=== PATIENT | female | born 1940 | race Caucasian/White ===

== ENCOUNTER → 2016-12-14 | Outpatient (CLI) | payer BC ==
[2016-12-14 12:46] LABS: ALT/SGPT 38 U/L (12-78); AST/SGOT 24 U/L (15-37); BLOOD UREA NITROGEN 18 mg/dl (7-18); BUN/CREATININE RATIO 24.1 (10-20); CALCIUM 9.3 mg/dl (8.5-10.1); CARBON DIOXIDE 28 mmol/L (21-32); CHLORIDE 109 mmol/L (98-107); CHOLESTEROL 224 mg/dl (0-200); CREATININE 0.76 mg/dl (0.60-1.20); GLUCOSE 116 mg/dl (70-99); POTASSIUM 4.3 mmol/L (3.5-5.1); SODIUM 143 mmol/L (136-145); TRIGLYCERIDES 289 mg/dl (0-150); VERY LOW DENSITY LIPOPROT CALC 58 mg/dl
[2016-12-14 12:52] LABS: ALB/GLOB RATIO 1.4 (0.9-2); ALKALINE PHOSPHATASE 71 U/L (45-117); CHOLESTEROL/HDL RATIO 3.6; HDL CHOLESTEROL 62 mg/dl; LDL CHOLESTEROL CALCULATED 104 mg/dl
[2016-12-14 13:22] LABS: ESTIMATED AVERAGE GLUCOSE 120 mg/dl; HA1C FLAG Normal (Normal)
== END | disposition home or self-care (01) ==
LOC: C.LABPVFM 09:14
PROVIDERS: ATTEND Family Medicine
DX: E78.5 Hyperlipidemia, unspecified (principal); R73.01 Impaired fasting glucose; B00.1 Herpesviral vesicular dermatitis; R32 Unspecified urinary incontinence

== ENCOUNTER → 2017-01-20 | Outpatient (CLI) | payer BC | END | disposition home or self-care (01) | LOC: C.MAMM 11:05 | PROVIDERS: ATTEND Family Medicine | DX: M85.851 Other specified disorders of bone density and structure, right thigh (principal); M85.852 Other specified disorders of bone density and structure, left thigh ==

== ENCOUNTER → 2017-03-16 | Outpatient (CLI) | payer BC ==
--- NOTE | 2017-03-16 15:19 | MAMMOGRAPHY REPORT ---
BILATERAL DIGITAL SCREENING MAMMOGRAM WITH CAD: 03/16/2017 CLINICAL HISTORY: Routine screening. TECHNIQUE: Current study was also evaluated with a Computer Aided Detection (CAD) system. Bilateral CC and MLO views were obtained. COMPARISON: Comparison is made to exams dated: 02/25/2016 mammogram, 02/21/2015 mammogram - [facility], 04/28/2011 mammogram, 05/22/2009 mammogram, and 11/12/2002 mammogram - [facility]. BREAST COMPOSITION: There are scattered areas of fibroglandular density in both breasts. FINDINGS: No suspicious masses, calcifications, or areas of architectural distortion are noted in ei ther breast. There has been no significant interval change compared to prior exams. IMPRESSION: ACR BI-RADS CATEGORY 1: NEGATIVE There is no mammographic evidence of malignancy. A 1 year screening mammogram is recommended. The pa tient will receive written notification of the results. Approximately 10% of breast cancers are not detected with mammography. A negative mammographic report should not delay biopsy if a clinically suggestive mass is present. Tamie Quevedo M.D. ah/:03/16/2017 14:42:14 Booth Cashier: Hyacinth Rebolledo RT(R)(M), [facility] letter sent: Normal 1/2 BI-RADS Code: ACR BI-RADS Category 1: Negative
== END | disposition home or self-care (01) ==
LOC: C.MAMM 13:03
PROVIDERS: ATTEND Family Medicine
DX: Z12.31 Encounter for screening mammogram for malignant neoplasm of breast (principal)

== ENCOUNTER → 2017-04-05 | Outpatient (CLI) | payer BC ==
--- NOTE | 2017-04-05 16:18 | DIAGNOSTIC IMAGING REPORT ---
LEFT SHOULDER MIN 2 VIEWS ROUTINE HISTORY: 76 years-old Female ARTHRAGLGIA OF MULTIPLE SITES acute left-sided shoulder pain without reported trauma. COMPARISON: None available TECHNIQUE: 3 views of the left shoulder FINDINGS: Moderate acromioclavicular and glenohumeral osteoarthritis is noted without acute fracture or dislocation. There is atherosclerosis of the aorta. The imaged lung mckeon appear clear. IMPRESSION: 1. No acute fracture or dislocation. 2. Moderate acromioclavicular and glenohumeral osteoarthritis The above report was generated using voice recognition software. It may contain grammatical, syntax or spelling errors. Electronically signed by: Indra Gipson M.D. 04/05/2017 4:17 PM Dictated Date/Time: 04/05/2017 4:16 PM
--- NOTE | 2017-04-05 16:21 | DIAGNOSTIC IMAGING REPORT ---
LEFT HAND MIN 3 VIEWS ROUTINE CLINICAL HISTORY: ARTHRALGIA OF MULTIPLE SITES pain COMPARISON: None. DISCUSSION: Severe degenerative change all major osseous structures. Considerable degenerative change first carpometacarpal joint. Mild periarticular osteopenia. Moderate reactive osteophytic changes throughout. Mild nonspecific soft tissue edema. IMPRESSION: Severe degenerative change. The above report was generated using voice recognition software. It may contain grammatical, syntax or spelling errors. Electronically signed by: Boom Hoffman M.D. 04/05/2017 4:20 PM Dictated Date/Time: 04/05/2017 4:19 PM
--- NOTE | 2017-04-05 16:23 | DIAGNOSTIC IMAGING REPORT ---
RIGHT HAND MIN 3 VIEWS ROUTINE CLINICAL HISTORY: ARTHRALGIA OF MULTIPLE SITES Right pain COMPARISON: None. DISCUSSION: Significant degenerative change throughout all major osseous structures. This includes the osseous structures as well as wrists. This is most prominent involving the distal interphalangeal joints. There is mild periarticular osteopenia. No major marginal erosions are identified. There is no evidence for soft tissue swelling. IMPRESSION: Considerable degenerative change. The above report was generated using voice recognition software. It may contain grammatical, syntax or spelling errors. Electronically signed by: Boom Hoffman M.D. 04/05/2017 4:22 PM Dictated Date/Time: 04/05/2017 4:20 PM
== END | disposition home or self-care (01) ==
LOC: C.RAD1850 15:57
PROVIDERS: ATTEND Internal Medicine Rheumatology
DX: M19.041 Primary osteoarthritis, right hand (principal); M19.042 Primary osteoarthritis, left hand; M19.012 Primary osteoarthritis, left shoulder; R76.8 Other specified abnormal immunological findings in serum

== ENCOUNTER → 2017-04-06 | Outpatient (CLI) | payer BC ==
[2017-04-06 13:18] LABS: URINE APPEARANCE CLEAR (CLEAR); URINE BILIRUBIN NEG (NEG); URINE COLOR DK YELLOW; URINE NITRITE NEG (NEG); URINE PH 7.5 (4.5-7.5); URINE SPECIFIC GRAVITY 1.026 (1.000-1.030); UROBILINOGEN NEG (NEG)
[2017-04-06 13:23] LABS: MANUAL MICROSCOPIC REQUIRED? NO; REVIEW REQ? NO
[2017-04-06 13:50] LABS: AST/SGOT 20 U/L (15-37); BLOOD UREA NITROGEN 15 mg/dl (7-18); BUN/CREATININE RATIO 16.7 (10-20); CALCIUM 9.7 mg/dl (8.5-10.1); CARBON DIOXIDE 29 mmol/L (21-32); CHLORIDE 105 mmol/L (98-107); CHOLESTEROL 183 mg/dl (0-200); CREATININE 0.88 mg/dl (0.60-1.20); GLUCOSE 103 mg/dl (70-99); SODIUM 139 mmol/L (136-145)
[2017-04-06 13:55] LABS: ALB/GLOB RATIO 0.9 (0.9-2); ALKALINE PHOSPHATASE 93 U/L (45-117); ALT/SGPT 40 U/L (12-78); CHOLESTEROL/HDL RATIO 4.2; HDL CHOLESTEROL 44 mg/dl; LDL CHOLESTEROL CALCULATED 92 mg/dl; TRIGLYCERIDES 234 mg/dl (0-150); VERY LOW DENSITY LIPOPROT CALC 47 mg/dl
[2017-04-10 23:12] LABS: ANTI-CENTROMERE AB <1.0 NEG AI (<1.0 NEG); ANTI-SS-A <1.0 NEG AI (<1.0 NEG); ANTI-SS-B <1.0 NEG AI (<1.0 NEG); DNA ds CRITHIDIA NEGATIVE (NEGATIVE); Sm Antibody <1.0 NEG AI (<1.0 NEG)
== END | disposition home or self-care (01) ==
LOC: C.LABPVFM 08:13
PROVIDERS: ATTEND Internal Medicine Rheumatology
DX: M25.512 Pain in left shoulder (principal); R76.8 Other specified abnormal immunological findings in serum; J45.909 Unspecified asthma, uncomplicated; E78.5 Hyperlipidemia, unspecified; R73.01 Impaired fasting glucose; D17.9 Benign lipomatous neoplasm, unspecified; R32 Unspecified urinary incontinence

== ENCOUNTER → 2018-03-20 | Outpatient (CLI) | payer BC ==
--- NOTE | 2018-03-22 13:39 | MAMMOGRAPHY REPORT ---
BILATERAL DIGITAL SCREENING MAMMOGRAM TOMOSYNTHESIS WITH CAD: 03/20/2018 CLINICAL HISTORY: Routine screening. TECHNIQUE: The study was acquired using full field digital technology and interpreted from soft copy. Breast tomosynthesis in addition to standard 2D mammography was performed. Current study was also ev aluated with a Computer Aided Detection (CAD) system. COMPARISON: Comparison is made to exams dated: 03/16/2017 mammogram, 02/25/2016 mammogram, 02/21/2015 [facility] - [facility], 04/28/2011 mammogram, 05/22/2009 mammogram, and 11/12/2002 [facility]. BREAST COMPOSITION: There are scattered areas of fibroglandular density in both breasts. FINDINGS: The parenchymal pattern is unchanged. No developing mass, architectural distortion or cluster of susp icious microcalcifications is seen in either breast. IMPRESSION: ACR BI-RADS CATEGORY 2: BENIGN There is no mammographic evidence of malignancy. A 1 year screening mammogram is recommended.( [id number]) The patient will receive written notification of the results. Some breast cancers are not detected with mammography. A negative mammographic report should not breanna y biopsy if a clinically suggestive mass is present. Pippa Kiran M.D. ay/:03/21/2018 19:54:53 Tattooer: RT Jose(Aaron)(), [facility] letter sent: Normal 1/2 BI-RADS Code: ACR BI-RADS Category 2: Benign
== END | disposition home or self-care (01) ==
LOC: C.MAMM 11:06
PROVIDERS: ATTEND Family Medicine
DX: Z12.31 Encounter for screening mammogram for malignant neoplasm of breast (principal)

== ENCOUNTER → 2018-03-22 | Outpatient (CLI) | payer BC ==
[2018-03-22 13:03] LABS: HEMOGLOBIN A1C 5.9 % (4.5-5.6)
[2018-03-22 13:08] LABS: ALBUMIN 3.9 gm/dl (3.4-5.0); ALKALINE PHOSPHATASE 73 U/L (45-117); ALT/SGPT 35 U/L (12-78); AST/SGOT 16 U/L (15-37); BLOOD UREA NITROGEN 14 mg/dl (7-18); CALCIUM 9.1 mg/dl (8.5-10.1); CARBON DIOXIDE 30 mmol/L (21-32); CHOLESTEROL 184 mg/dl (0-200); CREATININE 0.78 mg/dl (0.60-1.20); GLUCOSE 111 mg/dl (70-99); LDL CHOLESTEROL CALCULATED 82 mg/dl; POTASSIUM 4.1 mmol/L (3.5-5.1); SODIUM 140 mmol/L (136-145); TOTAL PROTEIN 7.7 gm/dl (6.4-8.2)
== END | disposition home or self-care (01) ==
LOC: C.LABPVFM 08:08
PROVIDERS: ATTEND Family Medicine
DX: J45.909 Unspecified asthma, uncomplicated (principal); E78.5 Hyperlipidemia, unspecified; R32 Unspecified urinary incontinence; R73.01 Impaired fasting glucose; K57.30 Diverticulosis of large intestine without perforation or abscess without bleeding; K63.5 Polyp of colon

== ENCOUNTER 2023-03-08 19:14 | Observation (INO) ==
--- NOTE | 2023-03-08 19:30 | Emergency Department Note ---
Impression & Plan Slurred speech, Right arm weakness ED Provider Note NAME: BRITT BOGGS AGE: 82 SEX: F : 1940 ARRIVES VIA: Walk-In INFORMANT: Patient ED PROVIDER(S): Alex Valdes DO CHIEF COMPLAINT: Slurred speech and right hand weakness HPI: Patient is an 82-year-old female with a past medical history of paroxysmal A-fib on Eliquis who took her medication this morning, sinusitis, palpitations, PAT who presents to the ER for slurred speech and right hand issues. She notes that she is having trouble with her dexterity of her right hand. She has trouble getting her words out. This has been present since she woke up. She went to bed last night around 11 PM normal. Denies any headache or change in vision. No chest pain or shortness of breath. No nausea, vomiting, or di arrhea. No dysuria, urgency, or frequency. No other exacerbating or remitting factors. PAST MEDICAL HISTORY:See Below PAST SURGICAL HISTORY:See Below FAMILY HISTORY:See Below SOCIAL HISTORY:See Below HOME MEDICATIONS:See Below ALLERGIES:See Below VITALS:See Below PHYSICAL EXAMINATION: GENERAL: Sitting up in bed, alert, well appearing, well nourished, no distress, non-toxic EYE EXAM: normal conjunctiva. PERRL and EOM's intact. OROPHARYNX: no exudate, no erythema, lips, buccal mucosa, and tongue normal and mucous membranes are moist NECK: supple, no nuchal rigidity, no adenopathy, non-tender LUNGS: Clear to auscultation. Normal chest wall mechanics HEART: no murmurs, S1 normal and S2 normal ABDOMEN: abdomen soft, non-tender, normo-active bowel sounds, no masses, no rebound or guarding. BACK: Back is symmetrical on inspection and there is no deformity, no midline tenderness, no CVA tenderness. SKIN: no rashes and no bruising UPPER EXTREMITIES: upper extremities are grossly normal. LOWER EXTREMITIES: No pitting edema. NEURO EXAM: Normal sensorium, cranial nerves II-XII intact, slurred speech, no weakness of arms, no weakness of legs. No drift. Finger to nose intact. Gross sensation intact. MEDICAL DECISION MAKING: Patient is an 82-year-old female who presents the ER for above-stated complaint. IV was established blood work was obtained. Labs show mild leukocytosis of 11,000. No significant anemia. INR unremarkable. BMP along with LFTs bilirubin and troponin was negative. Patient was given IV fluids. Upon presentation she had expressive aphasia which cleared up while in the ER. Symptoms started earlier today some around 7 AM when she woke up. She went to b ed last night around 11. On NOAC and she took this when she woke up. Not a TKN candidate. Patient and family were updated at bedside. She was given IV fluids. She is admitted to the hospital for further evaluation management and treatment of her possible TIA. Did discuss with the hospitalist for further evaluation Michelle Salter. Triage Nursing notes reviewed. Limited review of prior medical records performed Vital Signs: reviewed and remarkable for htn Differential diagnosis: Differential Diagnosis includes but is not limited to ischemic Stroke, hemorrhagic stroke, bells palsy, mass, neoplasm, migraine headache, seizure, subarachnoid hemorrhage, TIA, and transient global amnesia. ER treatment provided: See below Diagnostics interpreted by me include EKG and cardiac monitoring as listed belo w: -Cardiac Monitoring: An order was placed for continuous cardiac monitoring. The monitor shows a rate of 70 with sinus rhythm. -ECG: Sinus rhythm rate 71 Normal axis No PVCs QTc 428 -Laboratory studies:Interpreted by me as stated above in MDM and shown below. Imaging studies: Xrays: As interpreted by me: Portable AP upright 1 view of the chest shows no focal infiltrate CTs show: CT angios of the head and neck were negative Consultation(s): As described in MDM Procedures:none Critical Care: None Past Med/Surg History Medical History Asthma Bronchitis Colon polyps Diverticulosis of colon History of COVID-19 Hyperlipidemia Melanoma Nasal polyps Osteopenia Palpitations PAT (paroxysmal atrial tachycardia) Prediabetes Pulmonary hypertension Urinary incontinence Surgical History H/O hand surgery History of appendectomy History of cholecystectomy History of colonoscopy History of shoulder surgery S/P eye surgery S/P foot surgery Family History Grandmother (Paternal) Ovarian cancer Grandfather (Maternal) Stroke Mother Stroke Brother Colorectal cancer Father Colorectal cancer Grandmother (Maternal) Colorectal cancer Other No family history of adverse response to anesthesia No family history of bleeding disorder Denies family history of Prostate cancer Myocardial infarction Breast cancer Social History Smoking Status: Never smoker Second Hand Exposure: No; Do You Dip or Chew Tobacco: No; Hx Alcohol Use: Yes Alcohol type: wine Hx Substance Use: No Preferred Language: Thai Communication Ability: Effective Hearing Ability: Normal Call Center Dispatcher Required: No Beliefs That Will Affect Care: None marital status: / Current Living Situation: Significant Other current occupational status: retired How many Children do You have: 1 Feels Safe at Home: Yes Childhood Exposure to Second-Hand Smoke: No Diet: regular caffeine: Yes (coffee) Dental Care, Regularly: Yes Physical Activity Frequency: Daily Seatbelt Use: always Sunscreen Use: Yes Assistive Devices: None Allergies Allergies Allergy/AdvReac Type Severity Reaction Status Date / Time Sulfa (Sulfonamide Allergy Mild Rash, Verified 01/04/23 14:01 Antibiotics) Trouble breathing Home Meds Home Medications Medication Instructions Recorded Confirmed calcium carbonate 600 mg calcium 900 mg PO BID 03/06/20 03/08/23 (1,500 mg) tablet multivitamin (Daily Multi-Vitamin 1 tab PO QPM 12/26/20 03/08/23 tablet) montelukast 10 mg tablet 10 mg PO QPM PRN asthma 01/19/22 03/08/23 fluticasone 250 mcg-salmeterol 50 1 inh inhalation DAILY 05/04/22 03/08/23 mcg/dose blistr powdr for inhalation atorvastatin 20 mg tablet 20 mg PO QPM 03/08/23 03/08/23 fluticasone propionate 50 2 spray intranasal DAILY 03/08/23 03/08/23 mcg/actuation nasal spray,suspension Previous Rx's Medication Instructions Recorded albuterol sulfate 90 mcg/actuation 2 puff inhalation Q4H PRN 12/04/21 aerosol inhaler shortness of breath #3 grams apixaban 5 mg tablet (Eliquis) 5 mg PO BID #180 tabs 05/13/22 mometasone 50 mcg/actuation nasal 2 spray intranasal DAILY #51 grams 09/29/22 spray tolterodine 2 mg tablet 2 mg PO QPM #90 tabs 01/10/23 diltiazem HCl 240 mg capsule,24 240 mg PO QPM #90 caps 02/18/23 hr,extended release Results & Data (ED) Vital Signs Vital Signs - 24 hr 03/08/23 19:16 03/08/23 19:41 03/08/23 19:41 Temperature 36.7 C Temperature Source Temporal Artery Scan Pulse Rate 71 68 69 Pulse Rate from SpO2 Sensor 68 Respiratory Rate 18 20 Respiratory Effort / Characteristics Non-Labored Respiratory Depth Normal Blood Pressure 191/79 H Blood Pressure Mean 116 Pulse Oximetry 97 94 Oxygen Delivery Method Room Air Sepsis Recent Fever Within 48 Hours No Sepsis New/Unexplained Change in Mental Status No Sepsis Action Taken by Nursing No Action Required 03/08/23 20:00 03/08/23 20:00 03/08/23 20:30 Temperature Temperature Source Pulse Rate Pulse Rate from SpO2 Sensor 68 Respiratory Rate Respiratory Effort / Characteristics Respiratory Depth Blood Pressure 160/94 H 150/79 H Blood Pressure Mean 124 119 Pulse Oximetry 94 Oxygen Delivery Method Sepsis Recent Fever Within 48 Hours Sepsis New/Unexplained Change in Mental Status Sepsis Action Taken by Nursing 03/08/23 20:30 03/08/23 21:00 03/08/23 21:30 Temperature Temperature Source Pulse Rate 67 68 Pulse Rate from SpO2 Sensor 68 69 Respiratory Rate 14 23 Respiratory Effort / Characteristics Respiratory Depth Blood Pressure 152/85 H Blood Pressure Mean 120 Pulse Oximetry 94 93 Oxygen Delivery Method Sepsis Recent Fever Within 48 Hours Sepsis New/Unexplained Change in Mental Status Sepsis Action Taken by Nursing 03/08/23 21:30 03/08/23 22:00 03/08/23 22:00 Temperature Temperature Source Pulse Rate 75 69 Pulse Rate from SpO2 Sensor 74 69 Respiratory Rate 18 21 Respiratory Effort / Characteristics Respiratory Depth Blood Pressure 149/81 H Blood Pressure Mean 123 Pulse Oximetry 94 93 Oxygen Delivery Method Sepsis Recent Fever Within 48 Hours Sepsis New/Unexplained Change in Mental Status Sepsis Action Taken by Nursing Laboratory Data 03/08/23 19:34 03/08/23 20:52 Lab Results 03/08/23 03/08/23 03/08/23 Range/Units 19:34 19:34 19:34 WBC 11.63 H (4.8-10.8) K/ul RBC 4.69 (4.20-5.40) M/uL Hgb 14.9 (12.0-16.0) g/dl POC Hgb (12.0-16.0) g/dl Hct 44.0 (37.0-47.0) % POC Hct (37-47) % MCV 93.8 (80.0-100.0) fL MCH 31.8 (25.0-34.0) pg MCHC 33.9 (32.0-36.0) g/dL RDW Std Deviation 43.7 (36.4-46.3) fL RDW Coeff of Mekhi 12.8 (11.5-14.5) % Plt Count 286 (130-400) K/uL MPV 10.2 (9.4-12.4) fL Immature Gran % (Auto) 0.3 % Neut % (Auto) 65.7 % Lymph % (Auto) 24.5 % Calhoun % (Auto) 5.5 % Eos % (Auto) 3.4 % Baso % (Auto) 0.6 % Neut # (Auto) 7.64 H (1.40-6.50) K/uL Lymph # (Auto) 2.85 (1.2-3.4) K/uL Calhoun # (Auto) 0.64 H (0.11-0.59) K/uL Eos # (Auto) 0.40 (0-0.50) K/uL Baso # (Auto) 0.07 (0-0.2) K/uL Immature Gran # (Auto) 0.03 (0.01-0.20) K/uL PT Cancelled INR Cancelled APTT Cancelled PTT Ratio Cancelled POC Sodium (135-144) mmol/L Sodium TNP POC Potassium (3.3-5.0) mmol/L Potassium TNP POC Chloride (101-112) mmol/L Chloride 104 (98-107) mmol/L Carbon Dioxide 24 (21-32) mmol/L POC Total CO2 (24-31) mmol/L Anion Gap TNP POC Anion Gap (16-25) mmol/L POC BUN (7-18) mg/dl BUN 20 (6-23) mg/dl Creatinine 0.78 (0.6-1.2) mg/dl POC Creatinine (0.6-1.3) mg/dl Est Cr Clr Drug Dosing Not Reportable Est GFR ( Amer) 82.6 ml/min Est GFR (Non-Af Amer) 71.3 ml/min BUN/Creatinine Ratio 25.6 H (10-20) Glucose 104 H (70-99(Fasting)) mg/dl POC Glucose (other) (70-99) mg/dl Calcium 10.0 (8.6-10.3) mg/dl POC Ioniz Calcium Jermaine (1.12-1.32) mmol/l Magnesium TNP Total Bilirubin 0.4 (0.2-1.0) mg/dl AST TNP ALT 23 (7-52) U/L Alkaline Phosphatase TNP Troponin I High Sens 3.8 (0-14) pg/ml Total Protein 8.0 (6.0-8.3) gm/dl Albumin TNP Globulin TNP Albumin/Globulin Ratio TNP 03/08/23 03/08/23 03/08/23 Range/Units 19:37 20:52 20:52 WBC (4.8-10.8) K/ul RBC (4.20-5.40) M/uL Hgb (12.0-16.0) g/dl POC Hgb 15.0 (12.0-16.0) g/dl Hct (37.0-47.0) % POC Hct 44 (37-47) % MCV (80.0-100.0) fL MCH (25.0-34.0) pg MCHC (32.0-36.0) g/dL RDW Std Deviation (36.4-46.3) fL RDW Coeff of Mekhi (11.5-14.5) % Plt Count (130-400) K/uL MPV (9.4-12.4) fL Immature Gran % (Auto) % Neut % (Auto) % Lymph % (Auto) % Calhoun % (Auto) % Eos % (Auto) % Baso % (Auto) % Neut # (Auto) (1.40-6.50) K/uL Lymph # (Auto) (1.2-3.4) K/uL Calhoun # (Auto) (0.11-0.59) K/uL Eos # (Auto) (0-0.50) K/uL Baso # (Auto) (0-0.2) K/uL Immature Gran # (Auto) (0.01-0.20) K/uL PT 11.3 INR 1.0 APTT 26.5 PTT Ratio 0.9 POC Sodium 140 (135-144) mmol/L Sodium 136 POC Potassium 4.5 (3.3-5.0) mmol/L Potassium 3.8 POC Chloride 105 (101-112) mmol/L Chloride (98-107) mmol/L Carbon Dioxide (21-32) mmol/L POC Total CO2 24 (24-31) mmol/L Anion Gap POC Anion Gap 16.0 (16-25) mmol/L POC BUN 25 H (7-18) mg/dl BUN (6-23) mg/dl Creatinine (0.6-1.2) mg/dl POC Creatinine 0.8 (0.6-1.3) mg/dl Est Cr Clr Drug Dosing Est GFR ( Amer) ml/min Est GFR (Non-Af Amer) ml/min BUN/Creatinine Ratio (10-20) Glucose (70-99(Fasting)) mg/dl POC Glucose (other) 107 H (70-99) mg/dl Calcium (8.6-10.3) mg/dl POC Ioniz Calcium Jermaine 1.19 (1.12-1.32) mmol/l Magnesium 2.0 Total Bilirubin (0.2-1.0) mg/dl AST 14 ALT (7-52) U/L Alkaline Phosphatase 60 Troponin I High Sens (0-14) pg/ml Total Protein (6.0-8.3) gm/dl Albumin 4.3 Globulin Albumin/Globulin Ratio Administered Medications Discontinued Medications Ioversol (Ioversol 350 Mg 125ml Prefilled Syringe) 118 ml IV ONCE ONE Stop: 03/08/23 19:59 Last Admin: 03/08/23 19:58 Dose: 118 ml Documented By: MURIEL Imaging Data Radiologist's Impression: Head CT 03/08/23 19:20 CR Exam(s): CT HEAD Without Contrast EXAM: CT Head Without Intravenous Contrast CLINICAL HISTORY: Reason for exam: neuro deficit, acute stroke suspected. TECHNIQUE: Axial computed tomography images of the head/brain without intravenous contrast. CTDI is 38.31 mGy and DLP is 546.36 mGy-cm. Automated exposure control was utilized for the study. A dose lowering technique was utilized adhering to the principles of ALARA. COMPARISON: None. FINDINGS: Brain: Global parenchymal volume loss with chronic microvascular ischemic changes. No hemorrhage. Ventricles: Unremarkable. No ventriculomegaly. Bones/joints: Osteoarthritis of the temporomandibular joints. No acute fracture. Soft tissues: Unremarkable. Sinuses: Mucosal thickening throughout the paranasal sinuses with aerated secretion in the left sphenoid sinus. Mastoid air cells: Unremarkable as visualized. No mastoid effusion. IMPRESSION: 1. No intracranial hemorrhage or evidence of large territorial infarction. 2. Global parenchymal volume loss with chronic microvascular ischemic changes. Communications: Call Doctor Stroke Electronically signed by: Pranay Peres MD 03/08/23 20:59 PM Head CTA 03/08/23 19:20 CR Exam(s): CTA HEAD With Contrast IV Amt: 118 ml optiray 350 EXAM: CT Angiography Head With Intravenous Contrast CLINICAL HISTORY: Reason for exam: neuro deficit, acute stroke suspected. TECHNIQUE: Axial computed tomographic angiography images of the head with intravenous contrast. CTDI is 38.31 mGy and DLP is 546.36 mGy-cm. Automated exposure control was utilized for the study. A dose lowering technique was utilized adhering to the principles of ALARA. MIP reconstructed images were created and reviewed. CONTRAST: Patient received 118 ml optiray 350 of IV contrast COMPARISON: None. FINDINGS: Right internal carotid artery: No acute findings. Intracranial segment is patent with no significant stenosis. No aneurysm. Right anterior cerebral artery: Unremarkable. No occlusion or significant stenosis. No aneurysm. Right middle cerebral artery: Unremarkable. No occlusion or significant stenosis. No aneurysm. Right posterior cerebral artery: Unremarkable. No occlusion or significant stenosis. No aneurysm. Right vertebral artery: Unremarkable as visualized. Left internal carotid artery: No acute findings. Intracranial segment is patent with no significant stenosis. No aneurysm. Left anterior cerebral artery: Unremarkable. No occlusion or significant stenosis. No aneurysm. Left middle cerebral artery: Unremarkable. No occlusion or significant stenosis. No aneurysm. Left posterior cerebral artery: Unremarkable. No occlusion or significant stenosis. No aneurysm. Left vertebral artery: Unremarkable as visualized. Basilar artery: Unremarkable. No occlusion or significant stenosis. No aneurysm. IMPRESSION: No large vessel occlusion. Communications: Call Doctor Stroke Electronically signed by: Pranay Peres MD 03/08/23 21:00 PM Neck CTA 03/08/23 19:20 CR Exam(s): CTA NECK With Contrast IV Amt: 118 ml optiray 350 EXAM: CT Angiography Neck With Intravenous Contrast CLINICAL HISTORY: Reason for exam: neuro deficit, acute stroke suspected. TECHNIQUE: Routine carotid CT angiography protocol was performed with intravenous contrast. NASCET criteria using the distal ICAs for comparison were used for evaluation of stenoses. CTDI is 11.58 mGy and DLP is 449.12 mGy-cm. Automated exposure control was utilized for the study. A dose lowering technique was utilized adhering to the principles of ALARA. MIP reconstructed images were created and reviewed. CONTRAST: Patient received 118 ml optiray 350 of IV contrast COMPARISON: None. FINDINGS: VASCULATURE: Right common carotid artery: Unremarkable. No occlusion or significant stenosis. No dissection. Right internal carotid artery: Unremarkable. Extracranial segment is patent with no occlusion or significant stenosis. No dissection. Right external carotid artery: Unremarkable. No occlusion. Right vertebral artery: Unremarkable. No occlusion or significant stenosis. No dissection. Left common carotid artery: Unremarkable. No occlusion or significant stenosis. No dissection. Left internal carotid artery: Unremarkable. Extracranial segment is patent with no occlusion or significant stenosis. No dissection. Left external carotid artery: Unremarkable. No occlusion. Left vertebral artery: Unremarkable. No occlusion or significant stenosis. No dissection. NECK: Bones/joints: Unremarkable. Soft tissues: Unremarkable. Lung apices: Clear. CAROTID STENOSIS REFERENCE USING NASCET CRITERIA: % ICA stenosis = (1 - narrowest ICA diameter/diameter of distal cervical ICA) x 100. Mild - <50% stenosis. Moderate - 50-69% stenosis. Severe - 70-94% stenosis. Near occlusion - 95-99% stenosis. Occluded - 100% stenosis. IMPRESSION: No dissection, pseudoaneurysm, or hemodynamically stenosis of the carotid or vertebral arteries. Communications: Call Doctor Stroke Electronically signed by: Pranay Peres MD 03/08/23 21:04 PM Discharge Plan Visit Data Chief Complaint: Neuro Symptoms/Deficit Stated Complaint: SLUR, INCOMPLETE THOUGHTS, DEXTERITY IMPAIRED ED Provider: Alex Valdes Discharge Problem: Slurred speech, Right arm weakness Forms Stand Alone Forms: My [facility] Prescriptions Prescriptions: No Action mometasone 50 mcg/actuation spray,non-aerosol 2 spray intranasal DAILY Qty: 51 2RF Rx Instructions: administer into each nostril tolterodine 2 mg tablet 2 mg PO QPM Qty: 90 0RF diltiazem HCl 240 mg capsule,extended release 24 hr 240 mg PO QPM Qty: 90 2RF calcium carbonate 600 mg calcium (1,500 mg) tablet 900 mg PO BID fluticasone propion-salmeterol 250-50 mcg/dose blister with device 1 inh inhalation DAILY Eliquis 5 mg tablet 5 mg PO BID Qty: 180 3RF multivitamin [Daily Multi-Vitamin] Tablet 1 tab PO QPM albuterol sulfate 90 mcg/actuation HFA aerosol inhaler 2 puff inhalation Q4H PRN (Reason: shortness of breath) Qty: 3 0RF montelukast 10 mg tablet 10 mg PO QPM PRN (Reason: asthma) atorvastatin 20 mg tablet 20 mg PO QPM fluticasone propionate 50 mcg/actuation spray,suspension 2 spray intranasal DAILY Referrals Referrals: Cintia Alliosn MD [Primary Care Provider] -
[2023-03-08 19:50] LABS: iSTAT Creatinine 0.8 mg/dl (0.6-1.3); iSTAT Ionized Calcium 1.19 mmol/l (1.12-1.32); iSTAT Potassium 4.5 mmol/L (3.3-5.0)
[2023-03-08] MEDS ORDERED: IOVERSOL 350 MG 125mL Prefilled Syringe IV ONE (19:58)
[2023-03-08 20:05] LABS: Basophils # (auto) 0.07 K/uL (0-0.2); Basophils % (auto) 0.6 %; Eosinophils % (auto) 3.4 %; Hemoglobin 14.9 g/dl (12.0-16.0); Immature Granulocytes # (auto) 0.03 K/uL (0.01-0.20); Immature Granulocytes % (auto) 0.3 %; Lymphocytes # (auto) 2.85 K/uL (1.2-3.4); Lymphocytes % (auto) 24.5 %; Mean Corpuscular Hemoglobin 31.8 pg (25.0-34.0); Mean Corpuscular Hgb Conc 33.9 g/dL (32.0-36.0); Mean Corpuscular Volume 93.8 fL (80.0-100.0); Mean Platelet Volume 10.2 fL (9.4-12.4); Monocytes # (auto) 0.64 K/uL (0.11-0.59); Monocytes % (auto) 5.5 %; Neutrophils # (auto) 7.64 K/uL (1.40-6.50); Neutrophils % (auto) 65.7 %; Platelet Count 286 K/uL (130-400); RDW Coefficient of Variation 12.8 % (11.5-14.5); RDW Standard Deviation 43.7 fL (36.4-46.3); Red Blood Count 4.69 M/uL (4.20-5.40); White Blood Count 11.63 K/ul (4.8-10.8)
[2023-03-08 20:28] LABS: Alanine Aminotransferase 23 U/L (7-52); BUN Creatinine Ratio 25.6 (10-20); Bilirubin,Total 0.4 mg/dl (0.2-1.0); Blood Urea Nitrogen 20 mg/dl (6-23); Carbon Dioxide 24 mmol/L (21-32); Chloride 104 mmol/L (98-107); Est GFR (African American) 82.6 ml/min; Est GFR (Non-African American) 71.3 ml/min; Glucose 104 mg/dl (70-99(Fasting)); Troponin I High Sensitivity 3.8 pg/ml (0-14)
--- NOTE | 2023-03-08 20:59 | CT Scan Report ---
Exam(s): CT HEAD Without Contrast EXAM: CT Head Without Intravenous Contrast CLINICAL HISTORY: Reason for exam: neuro deficit, acute stroke suspected. TECHNIQUE: Axial computed tomography images of the head/brain without intravenous contrast. CTDI is 38.31 mGy and DLP is 546.36 mGy-cm. Automated exposure control was utilized for the study. A dose lowering technique was utilized adhering to the principles of ALARA. COMPARISON: None. FINDINGS: Brain: Global parenchymal volume loss with chronic microvascular ischemic changes. No hemorrhage. Ventricles: Unremarkable. No ventriculomegaly. Bones/joints: Osteoarthritis of the temporomandibular joints. No acute fracture. Soft tissues: Unremarkable. Sinuses: Mucosal thickening throughout the paranasal sinuses with aerated secretion in the left sphenoid sinus. Mastoid air cells: Unremarkable as visualized. No mastoid effusion. IMPRESSION: 1. No intracranial hemorrhage or evidence of large territorial infarction. 2. Global parenchymal volume loss with chronic microvascular ischemic changes. Communications: Call Doctor Stroke Electronically signed by: Pranay Peres MD 03/08/23 20:59 PM
--- NOTE | 2023-03-08 21:02 | CT Scan Report ---
Exam(s): CTA HEAD With Contrast IV Amt: 118 ml optiray 350 EXAM: CT Angiography Head With Intravenous Contrast CLINICAL HISTORY: Reason for exam: neuro deficit, acute stroke suspected. TECHNIQUE: Axial computed tomographic angiography images of the head with intravenous contrast. CTDI is 38.31 mGy and DLP is 546.36 mGy-cm. Automated exposure control was utilized for the study. A dose lowering technique was utilized adhering to the principles of ALARA. MIP reconstructed images were created and reviewed. CONTRAST: Patient received 118 ml optiray 350 of IV contrast COMPARISON: None. FINDINGS: Right internal carotid artery: No acute findings. Intracranial segment is patent with no significant stenosis. No aneurysm. Right anterior cerebral artery: Unremarkable. No occlusion or significant stenosis. No aneurysm. Right middle cerebral artery: Unremarkable. No occlusion or significant stenosis. No aneurysm. Right posterior cerebral artery: Unremarkable. No occlusion or significant stenosis. No aneurysm. Right vertebral artery: Unremarkable as visualized. Left internal carotid artery: No acute findings. Intracranial segment is patent with no significant stenosis. No aneurysm. Left anterior cerebral artery: Unremarkable. No occlusion or significant stenosis. No aneurysm. Left middle cerebral artery: Unremarkable. No occlusion or significant stenosis. No aneurysm. Left posterior cerebral artery: Unremarkable. No occlusion or significant stenosis. No aneurysm. Left vertebral artery: Unremarkable as visualized. Basilar artery: Unremarkable. No occlusion or significant stenosis. No aneurysm. IMPRESSION: No large vessel occlusion. Communications: Call Doctor Stroke Electronically signed by: Pranay Peres MD 03/08/23 21:00 PM
--- NOTE | 2023-03-08 21:05 | CT Scan Report ---
Exam(s): CTA NECK With Contrast IV Amt: 118 ml optiray 350 EXAM: CT Angiography Neck With Intravenous Contrast CLINICAL HISTORY: Reason for exam: neuro deficit, acute stroke suspected. TECHNIQUE: Routine carotid CT angiography protocol was performed with intravenous contrast. NASCET criteria using the distal ICAs for comparison were used for evaluation of stenoses. CTDI is 11.58 mGy and DLP is 449.12 mGy-cm. Automated exposure control was utilized for the study. A dose lowering technique was utilized adhering to the principles of ALARA. MIP reconstructed images were created and reviewed. CONTRAST: Patient received 118 ml optiray 350 of IV contrast COMPARISON: None. FINDINGS: VASCULATURE: Right common carotid artery: Unremarkable. No occlusion or significant stenosis. No dissection. Right internal carotid artery: Unremarkable. Extracranial segment is patent with no occlusion or significant stenosis. No dissection. Right external carotid artery: Unremarkable. No occlusion. Right vertebral artery: Unremarkable. No occlusion or significant stenosis. No dissection. Left common carotid artery: Unremarkable. No occlusion or significant stenosis. No dissection. Left internal carotid artery: Unremarkable. Extracranial segment is patent with no occlusion or significant stenosis. No dissection. Left external carotid artery: Unremarkable. No occlusion. Left vertebral artery: Unremarkable. No occlusion or significant stenosis. No dissection. NECK: Bones/joints: Unremarkable. Soft tissues: Unremarkable. Lung apices: Clear. CAROTID STENOSIS REFERENCE USING NASCET CRITERIA: % ICA stenosis = (1 - narrowest ICA diameter/diameter of distal cervical ICA) x 100. Mild - <50% stenosis. Moderate - 50-69% stenosis. Severe - 70-94% stenosis. Near occlusion - 95-99% stenosis. Occluded - 100% stenosis. IMPRESSION: No dissection, pseudoaneurysm, or hemodynamically stenosis of the carotid or vertebral arteries. Communications: Call Doctor Stroke Electronically signed by: Pranay Peres MD 03/08/23 21:04 PM
[2023-03-08] MEDS ORDERED: SODIUM CHLORIDE 0.9% 500 ML IV ONE (21:18)
[2023-03-08 21:21] LABS: Albumin Level 4.3 gm/dl (3.4-5.0); Potassium 3.8 mmol/L (3.5-5.1)
[2023-03-08 21:38] LABS: Partial Thromboplastin Ratio 0.9; Partial Thromboplastin Time 26.5 Seconds (21.0-31.0); Prothrombin Time 11.3 Seconds (9.0-12.0)
--- NOTE | 2023-03-08 22:36 | History & Physical Report ---
Date of Service March 08, 2023 Assessment & Plan (1) Slurred speech: Plan: 82yo right-hand dominant female presenting with complaint of slurred speech, word finding difficulty and clumsiness of her right hand which she noted upon waking this AM at 06:30 and progressed throughout the day. Last known normal 03/07/23 at 23:00. Symptoms have been improving since arrival to the ER. Concern for TIA vs CVA. -Observation to medical with telemetry -NIHSS daily, neuro checks per protocol -Dysphagia screening as needed -Check MRI brain -Check 2D echo -Check lipid panel and HgbA1C -Increase Atorvastatin to 40mg daily -Initiate DAPT with ASA and Plavix -Neurology consultation appreciated -PT/OT evaluations appreciated -Speech evaluation appreciated (2) Paroxysmal atrial fibrillation: Plan: Presently in NSR. Patient is anticoagulated on Apixaban -Hold Apixaban for nor -Hold Diltiazem to allow for permissive HTN -Telemetry monitoring (3) Hyperlipidemia: Plan: Chronic -Increase Atorvastatin from 20mg po daily to 40mg po daily History of Present Illness Chief Complaint: neuro complaints Primary Care Provider: Cintia Allison MD Andressa Esteves is a pleasant right-hand dominant 82yo female with history of HLP, Pre-DM, possible TIA 3 years ago for which she was seen at Urgent Care presenting with word finding difficulty and right hand clumsiness. Patient was last seen normal last night 03/07/23 at 23:00 before going to bed. She reports feeling restless all through the night - she did not sleep well which is atypical for her. She woke up at 06:30 and noted some speech difficulty, word finding issues and difficulty saying the words as well as clumsiness of her right hand. She also reports some blurry vision. She had an appointment at [facility] [place] to assess her right foot which was recently operated on. She reports that the appointment went well but the provider commented that she didn't seem like herself. Her symptoms worsened throughout the day which prompted her to come to the ER. Additionally, patient reports having an isolated fever, chills and body aches 2 days ago which has since resolved. No additional complaints at this time - specifically denies chest pain, palpitations, cough, SOB, nausea, vomiting, diarrhea or urinary complaints. She feels that her symptoms are overall improving. She states she is speaking more fluently and her right hand clumsiness is improving as well. In the ER she is afebrile, hypertensive otherwise HD stable Allergies Allergy/AdvReac Type Severity Reaction Status Date / Time Sulfa (Sulfonamide Allergy Mild Rash, Verified 01/04/23 14:01 Antibiotics) Trouble breathing Home Medications Medication Instructions Recorded Confirmed Type calcium carbonate 600 mg calcium 900 mg PO BID 03/06/20 03/08/23 History (1,500 mg) tablet multivitamin (Daily Multi-Vitamin 1 tab PO QPM 12/26/20 03/08/23 History tablet) albuterol sulfate 90 mcg/actuation 2 puff inhalation Q4H PRN 12/04/21 03/08/23 Rx aerosol inhaler shortness of breath #3 grams montelukast 10 mg tablet 10 mg PO QPM PRN asthma 01/19/22 03/08/23 History fluticasone 250 mcg-salmeterol 50 1 inh inhalation DAILY 05/04/22 03/08/23 History mcg/dose blistr powdr for inhalation apixaban 5 mg tablet (Eliquis) 5 mg PO BID #180 tabs 05/13/22 03/08/23 Rx mometasone 50 mcg/actuation nasal 2 spray intranasal DAILY #51 grams 09/29/22 03/08/23 Rx spray tolterodine 2 mg tablet 2 mg PO QPM #90 tabs 01/10/23 03/08/23 Rx diltiazem HCl 240 mg capsule,24 240 mg PO QPM #90 caps 02/18/23 03/08/23 Rx hr,extended release atorvastatin 20 mg tablet 20 mg PO QPM 03/08/23 03/08/23 History fluticasone propionate 50 2 spray intranasal DAILY 03/08/23 03/08/23 History mcg/actuation nasal spray,suspension Past Med/Surg History Medical History Asthma has inhaler Bronchitis d/t chronic nasal infection Colon polyps Diverticulosis of colon History of COVID-19 07/2020 - fever, lost taste/smell - no hospitalization - tested at urgent care - resolved Hyperlipidemia Melanoma Nasal polyps Osteopenia Palpitations h/o PAT, follows with [facility] (paroxysmal atrial tachycardia) follows with [facility] [place] Prediabetes Pulmonary hypertension Urinary incontinence Surgical History H/O hand surgery ganglion cyst - right hand History of appendectomy History of cholecystectomy History of colonoscopy History of shoulder surgery Right should S/P eye surgery removal of eye cysts S/P foot surgery crushed by horse 15 years ago Family History Grandmother (Paternal) Ovarian cancer Grandfather (Maternal) Stroke Mother Stroke Brother Colorectal cancer Father Colorectal cancer Grandmother (Maternal) Colorectal cancer Other No family history of adverse response to anesthesia No family history of bleeding disorder Denies family history of Prostate cancer Myocardial infarction Breast cancer Social History Smoking Status: Never smoker Second Hand Exposure: No; Do You Dip or Chew Tobacco: No; Hx Alcohol Use: Yes Alcohol type: wine Hx Substance Use: No Preferred Language: Welsh Communication Ability: Effective Hearing Ability: Normal Quarter Backer Required: No Beliefs That Will Affect Care: None marital status: / Current Living Situation: Significant Other current occupational status: retired How many Children do You have: 1 Feels Safe at Home: Yes Childhood Exposure to Second-Hand Smoke: No Diet: regular caffeine: Yes (coffee) Dental Care, Regularly: Yes Physical Activity Frequency: Daily Seatbelt Use: always Sunscreen Use: Yes Assistive Devices: None Review of Systems Review of Systems: All systems reviewed & are unremarkable except as noted in HPI & below Physical Exam Physical Exam: General: patient resting comfortably, NAD, non-toxic in appearance, AA&O x 4 Skin: warm, dry, intact, no rashes or lesions HEENT: NC/AT, PERRL, EOMI, anicteric sclera, conjunctiva without injection, external ear normal to inspection and nontender, nares patent, moist mucus membranes, dentition intact, no oropharyngeal lesions, neck supple, trachea midline, no LAD, no thyromegaly, no JVD Heart: +S1/S2, regular, no m/r/g Lungs: equal air entry bilaterally, no rales/rhonchi/wheezes Abd: +BS, soft, NT/ND, no masses/organomegaly/ascites Ext: warm, 2+ pulses in UE/LE bilaterally, no clubbing/cyanosis or edema, right foot in walking boot Neuro: AA&O x 4, some word finding difficulty but overall speech is fluent and clear, no facial droop, CN II - XII grossly intact, sensation to light touch intact, MS 5/5 in UE/LE bilaterally, some mild dysmetria with right-handed [id number] testing, gait not assessed Results & Data Results & Data Vital Signs (Past 12 Hours) Vital Signs Temp Pulse Resp BP Pulse Ox O2 Del Method 03/08/23 22:00 69 21 93 03/08/23 22:00 149/81 H 03/08/23 21:30 75 18 94 03/08/23 21:30 152/85 H 03/08/23 21:00 68 23 93 03/08/23 20:30 67 14 94 03/08/23 20:30 150/79 H 03/08/23 20:00 94 03/08/23 20:00 160/94 H 03/08/23 19:41 69 20 94 03/08/23 19:41 68 03/08/23 19:16 36.7 C 71 18 191/79 H 97 Room Air Laboratory Results Laboratory Results WBC 11.63 K/ul (4.8-10.8) H 03/08/23 19:34 RBC 4.69 M/uL (4.20-5.40) 03/08/23 19:34 Hgb 14.9 g/dl (12.0-16.0) 03/08/23 19:34 POC Hgb 15.0 g/dl (12.0-16.0) 03/08/23 19:37 Hct 44.0 % (37.0-47.0) 03/08/23 19:34 POC Hct 44 % (37-47) 03/08/23 19:37 MCV 93.8 fL (80.0-100.0) 03/08/23 19:34 MCH 31.8 pg (25.0-34.0) 03/08/23 19:34 MCHC 33.9 g/dL (32.0-36.0) 03/08/23 19:34 RDW Std Deviation 43.7 fL (36.4-46.3) 03/08/23 19:34 RDW Coeff of M[place] 12.8 % (11.5-14.5) 03/08/23 19:34 Plt Count 286 K/uL (130-400) 03/08/23 19:34 MPV 10.2 fL (9.4-12.4) 03/08/23 19:34 Immature Gran % (Auto) 0.3 % 03/08/23 19:34 Neut % (Auto) 65.7 % 03/08/23 19:34 Lymph % (Auto) 24.5 % 03/08/23 19:34 [place] % (Auto) 5.5 % 03/08/23 19:34 Eos % (Auto) 3.4 % 03/08/23 19:34 Baso % (Auto) 0.6 % 03/08/23 19:34 Neut # (Auto) 7.64 K/uL (1.40-6.50) H 03/08/23 19:34 Lymph # (Auto) 2.85 K/uL (1.2-3.4) 03/08/23 19:34 [place] # (Auto) 0.64 K/uL (0.11-0.59) H 03/08/23 19:34 Eos # (Auto) 0.40 K/uL (0-0.50) 03/08/23 19:34 Baso # (Auto) 0.07 K/uL (0-0.2) 03/08/23 19:34 Immature Gran # (Auto) 0.03 K/uL (0.01-0.20) 03/08/23 19:34 PT 11.3 Seconds (9.0-12.0) 03/08/23 20:52 INR 1.0 (0.9-1.1) 03/08/23 20:52 APTT 26.5 Seconds (21.0-31.0) 03/08/23 20:52 PTT Ratio 0.9 03/08/23 20:52 POC Sodium 140 mmol/L (135-144) 03/08/23 19:37 Sodium 136 mmol/L (136-145) 03/08/23 20:52 POC Potassium 4.5 mmol/L (3.3-5.0) 03/08/23 19:37 Potassium 3.8 mmol/L (3.5-5.1) 03/08/23 20:52 POC Chloride 105 mmol/L (101-112) 03/08/23 19:37 Chloride 104 mmol/L (98-107) 03/08/23 19:34 Carbon Dioxide 24 mmol/L (21-32) 03/08/23 19:34 POC Total CO2 24 mmol/L (24-31) 03/08/23 19:37 Anion Gap TNP 03/08/23 19:34 POC Anion Gap 16.0 mmol/L (16-25) 03/08/23 19:37 POC BUN 25 mg/dl (7-18) H 03/08/23 19:37 BUN 20 mg/dl (6-23) 03/08/23 19:34 Creatinine 0.78 mg/dl (0.6-1.2) 03/08/23 19:34 POC Creatinine 0.8 mg/dl (0.6-1.3) 03/08/23 19:37 Est Cr Clr Drug Dosing Not Reportable 03/08/23 19:34 Est GFR ( Amer) 82.6 ml/min 03/08/23 19:34 Est GFR (Non-Af Amer) 71.3 ml/min 03/08/23 19:34 BUN/Creatinine Ratio 25.6 (10-20) H 03/08/23 19:34 Glucose 104 mg/dl (70-99(Fasting)) H 03/08/23 19:34 POC Glucose (other) 107 mg/dl (70-99) H 03/08/23 19:37 Calcium 10.0 mg/dl (8.6-10.3) 03/08/23 19:34 POC Ioniz Calcium Jermaine 1.19 mmol/l (1.12-1.32) 03/08/23 19:37 Magnesium 2.0 mg/dl (1.7-2.4) 03/08/23 20:52 Total Bilirubin 0.4 mg/dl (0.2-1.0) 03/08/23 19:34 AST 14 U/L (13-39) 03/08/23 20:52 ALT 23 U/L (7-52) 03/08/23 19:34 Alkaline Phosphatase 60 U/L (34-104) 03/08/23 20:52 Troponin I High Sens 3.8 pg/ml (0-14) 03/08/23 19:34 Total Protein 8.0 gm/dl (6.0-8.3) 03/08/23 19:34 Albumin 4.3 gm/dl (3.4-5.0) 03/08/23 20:52 Globulin TNP 03/08/23 19:34 Albumin/Globulin Ratio TNP 03/08/23 19:[address] 03/08/23 19:20 CR Exam(s): CT HEAD Without Contrast EXAM: CT Head Without Intravenous Contrast CLINICAL HISTORY: Reason for exam: neuro deficit, acute stroke suspected. TECHNIQUE: Axial computed tomography images of the head/brain without intravenous contrast. CTDI is 38.31 mGy and DLP is 546.36 mGy-cm. Automated exposure control was utilized for the study. A dose lowering technique was utilized adhering to the principles of ALARA. COMPARISON: None. FINDINGS: Brain: Global parenchymal volume loss with chronic microvascular ischemic changes. No hemorrhage. Ventricles: Unremarkable. No ventriculomegaly. Bones/joints: Osteoarthritis of the temporomandibular joints. No acute fracture. Soft tissues: Unremarkable. Sinuses: Mucosal thickening throughout the paranasal sinuses with aerated secretion in the left sphenoid sinus. Mastoid air cells: Unremarkable as visualized. No mastoid effusion. IMPRESSION: 1. No intracranial hemorrhage or evidence of large territorial infarction. 2. Global parenchymal volume loss with chronic microvascular ischemic changes. Communications: Call Doctor Stroke Electronically signed by: Pranay Peres MD 03/08/23 20:59 PM Head CTA 03/08/23 19:20 CR Exam(s): CTA HEAD With Contrast IV Amt: 118 ml optiray 350 EXAM: CT Angiography Head With Intravenous Contrast CLINICAL HISTORY: Reason for exam: neuro deficit, acute stroke suspected. TECHNIQUE: Axial computed tomographic angiography images of the head with intravenous contrast. CTDI is 38.31 mGy and DLP is 546.36 mGy-cm. Automated exposure control was utilized for the study. A dose lowering technique was utilized adhering to the principles of ALARA. MIP reconstructed images were created and reviewed. CONTRAST: Patient received 118 ml optiray 350 of IV contrast COMPARISON: None. FINDINGS: Right internal carotid artery: No acute findings. Intracranial segment is patent with no significant stenosis. No aneurysm. Right anterior cerebral artery: Unremarkable. No occlusion or significant stenosis. No aneurysm. Right middle cerebral artery: Unremarkable. No occlusion or significant stenosis. No aneurysm. Right posterior cerebral artery: Unremarkable. No occlusion or significant stenosis. No aneurysm. Right vertebral artery: Unremarkable as visualized. Left internal carotid artery: No acute findings. Intracranial segment is patent with no significant stenosis. No aneurysm. Left anterior cerebral artery: Unremarkable. No occlusion or significant stenosis. No aneurysm. Left middle cerebral artery: Unremarkable. No occlusion or significant stenosis. No aneurysm. Left posterior cerebral artery: Unremarkable. No occlusion or significant stenosis. No aneurysm. Left vertebral artery: Unremarkable as visualized. Basilar artery: Unremarkable. No occlusion or significant stenosis. No aneurysm. IMPRESSION: No large vessel occlusion. Communications: Call Doctor Stroke Electronically signed by: Pranay Peres MD 03/08/23 21:00 PM Neck CTA 03/08/23 19:20 CR Exam(s): CTA NECK With Contrast IV Amt: 118 ml optiray 350 EXAM: CT Angiography Neck With Intravenous Contrast CLINICAL HISTORY: Reason for exam: neuro deficit, acute stroke suspected. TECHNIQUE: Routine carotid CT angiography protocol was performed with intravenous contrast. NASCET criteria using the distal ICAs for comparison were used for evaluation of stenoses. CTDI is 11.58 mGy and DLP is 449.12 mGy-cm. Automated exposure control was utilized for the study. A dose lowering technique was utilized adhering to the principles of ALARA. MIP reconstructed images were created and reviewed. CONTRAST: Patient received 118 ml optiray 350 of IV contrast COMPARISON: None. FINDINGS: VASCULATURE: Right common carotid artery: Unremarkable. No occlusion or significant stenosis. No dissection. Right internal carotid artery: Unremarkable. Extracranial segment is patent with no occlusion or significant stenosis. No dissection. Right external carotid artery: Unremarkable. No occlusion. Right vertebral artery: Unremarkable. No occlusion or significant stenosis. No dissection. Left common carotid artery: Unremarkable. No occlusion or significant stenosis. No dissection. Left internal carotid artery: Unremarkable. Extracranial segment is patent with no occlusion or significant stenosis. No dissection. Left external carotid artery: Unremarkable. No occlusion. Left vertebral artery: Unremarkable. No occlusion or significant stenosis. No dissection. NECK: Bones/joints: Unremarkable. Soft tissues: Unremarkable. Lung apices: Clear. CAROTID STENOSIS REFERENCE USING NASCET CRITERIA: % ICA stenosis = (1 - narrowest ICA diameter/diameter of distal cervical ICA) x 100. Mild - <50% stenosis. Moderate - 50-69% stenosis. Severe - 70-94% stenosis. Near occlusion - 95-99% stenosis. Occluded - 100% stenosis. IMPRESSION: No dissection, pseudoaneurysm, or hemodynamically stenosis of the carotid or vertebral arteries. Communications: Call Doctor Stroke Electronically signed by: Pranay Peres MD 03/08/23 21:04 PM Diagnostic Findings CXR - by my interpretation - no acute process, no PNA, edema or PTX ECG Additional Comments: EKG per my interpretation - study shows NSR at 71bm, normal axis, BP=304, QRS=84, FUph=927, no acute infarct, possible septal infarct noted PG Care Time/CCT Total # of Minutes Spent Total Time Spent with Patient: Total time spent is greater than 50% in coordination of care (as documented) at patient's floor/unit and/or counseling patient: Coding Level of Care Code 18317 INT INP/OBS CARE 2/55MIN Diagnoses Slurred speech R47.81 Paroxysmal atrial fibrillation I48.0 Hyperlipidemia E78.2 Hyperlipidemia type: mixed hyperlipidemia (3) Hyperlipidemia Hyperlipidemia type: mixed hyperlipidemia Qualified Code(s): E78.2 - Mixed hyperlipidemia
[2023-03-09] MEDS ORDERED: ONDANSETRON INJ 2 MG/ML 2 ML VIAL IV PRN (00:41)
[2023-03-09] MEDS ORDERED: ACETAMINOPHEN 325 MG TAB PO PRN (00:41)
[2023-03-09] MEDS ORDERED: ALBUTEROL HFA 8 GM INHALER INH PRN (00:41)
[2023-03-09] MEDS ORDERED: GADOBUTROL 65ML VIAL IV ONE (03:30)
--- NOTE | 2023-03-09 05:17 | Magnetic Resonance Report ---
Exam(s): MRI HEAD W/WO Contrast IV Amt: 6.5cc gadavist EXAM: MR Head Without and With Intravenous Contrast CLINICAL HISTORY: Reason for exam: ?CVA. TECHNIQUE: Magnetic resonance images of the head/brain without and with intravenous contrast in multiple planes. CONTRAST: Patient received 6.5cc gadavist of IV contrast COMPARISON: Comparison made to prior head CT from March 08, 2023. FINDINGS: Brain: There is an acute ischemic injury within the left capsule and basal ganglia with moderate cytotoxic edema. No evidence of hemorrhagic transformation. Mild to moderate nonspecific white matter changes. The flow voids at the base of the brain are intact. No evidence of abnormal enhancement. The dural venous sinuses are patent. Ventricles: Mild ventriculomegaly. Bones/joints: Unremarkable. Sinuses: Chronic, sphenoid ethmoid and frontal sinusitis. No acute sinusitis. Mastoid air cells: Unremarkable as visualized. No mastoid effusion. Orbits: Unremarkable as visualized. IMPRESSION: Acute ischemic injury within the left capsule and basal ganglia without evidence of hemorrhagic transformation. Communications: Verify Receipt with Nurse Electronically signed by: Mary Pérez MD 03/09/23 05:16 AM
[2023-03-09 07:25] LABS: Basophils # (auto) 0.08 K/uL (0-0.2); Eosinophils # (auto) 0.38 K/uL (0-0.50); Eosinophils % (auto) 4.5 %; Hematocrit (blood only) 40.6 % (37.0-47.0); Hemoglobin 14.1 g/dl (12.0-16.0); Immature Granulocytes # (auto) 0.02 K/uL (0.01-0.20); Immature Granulocytes % (auto) 0.2 %; Lymphocytes # (auto) 2.38 K/uL (1.2-3.4); Lymphocytes % (auto) 28.4 %; Mean Corpuscular Hemoglobin 31.8 pg (25.0-34.0); Mean Corpuscular Hgb Conc 34.7 g/dL (32.0-36.0); Mean Corpuscular Volume 91.6 fL (80.0-100.0); Monocytes # (auto) 0.51 K/uL (0.11-0.59); Monocytes % (auto) 6.1 %; Neutrophils # (auto) 5.02 K/uL (1.40-6.50); Neutrophils % (auto) 59.8 %; Platelet Count 248 K/uL (130-400); RDW Coefficient of Variation 12.6 % (11.5-14.5); RDW Standard Deviation 42.2 fL (36.4-46.3); Red Blood Count 4.43 M/uL (4.20-5.40); White Blood Count 8.39 K/ul (4.8-10.8)
[2023-03-09 07:37] LABS: BUN Creatinine Ratio 24.6 (10-20); Calcium 9.3 mg/dl (8.6-10.3); Chol HDL Ratio 4.4 (0-5); Creatinine Clr Calc Pharmacy 69.7 ml/min; Est GFR (African American) 100.8 ml/min; Est GFR (Non-African American) 86.9 ml/min; Potassium 3.9 mmol/L (3.5-5.1)
--- NOTE | 2023-03-09 08:10 | XRay Report ---
XR chest 1V portable CLINICAL HISTORY: neuro deficit, acute stroke suspected TECHNIQUE: Single frontal radiograph of the chest was obtained. Comparison: Comparison is made to chest radiograph 04/02/2022 FINDINGS: No lines and tubes are seen. The cardiomediastinal silhouette is normal. The lungs are clear. No evid ence of pleural effusion or pneumothorax. IMPRESSION: No acute chest disease. ACT 112: Negative or not required by law. Electronically signed by: Phi Worrell M.D. 03/09/2023 8:09 AM
[2023-03-09 08:41] LABS: Estimated Average Glucose 126 mg/dl
--- NOTE | 2023-03-09 08:48 | Neurology Consultation ---
Date of Consultation March 09, 2023 Assessment & Plan (1) Stroke with cerebral ischemia: L MCA territory embolic stroke in the setting of afib on eliquis. Eliquis is not 100% effective in stroke prevention despite good medication adherence. It still remains the best choice for secondary stroke prevention though would recommend echo to assess for valvular disease. Can stop dual antiplatelet therapy which is not indicated in this clinical context. Agree with lipitor 40mg given her lipid panel though no significant athero on CTA. Suspect prognosis is very good given her rapid improvement since admission. -- Resume eliquis 5mg BID -- Stop dual antiplatelet therapy -- Continue atorva 40mg daily -- Echo pending -- Neurology follow-up in 4-6 weeks, please contact us with any further questions. Telehealth Consultation Telehealth Information Telehealth Information: I performed this visit using a real-time telehealth connection between my location and the patients location ([facility]). After connecting through interactive tele-video, patient was identified by name and date of and/or wristband check.Patient (or authorized healthcare junior sales representative) was informed that this was a telemedicine visit and it was being conducted confidentially over secure lines. My office door was closed and no one else was present in the room with me.Patient (or authorized healthcare junior sales representative) provided consent to proceed with the visit, expressed an understanding of privacy and security of the telemedicine visit, and gave permission to have a hospital junior sales representative in the room in order to assist with the visit and to conduct portions of the visit, as needed. I informed the patient (or authorized healthcare junior sales representative) that I reviewed their record and presented the opportunity for them to ask any questions regarding the visit today. The patient agreed to participate. History of Present Illness Reason for Consultation: Stroke Requesting Physician: Dr. Mooney Attending Physician: Romel Mooney MD History of Present Illness Andressa Esteves is an 82 yo F presenting with word finding difficulties and R hand weakness in the setting of afib on eliquis. Symptoms noticed by her friends who urged her to come to the hospital. No history of stroke in the past. Today she feels much better though hasnt yet tried to write with her R hand. She also notices that her speech is not as fluent with mild difficulty word finding though much better than when she was admitted. Denies any new weakness, numbness, vision changes or headache. Allergies Allergy/AdvReac Type Severity Reaction Status Date / Time Sulfa (Sulfonamide Allergy Mild Rash, Verified 01/04/23 14:01 Antibiotics) Trouble breathing Home Medications Medication Instructions Recorded Confirmed Type calcium carbonate 600 mg calcium 900 mg PO BID 03/06/20 03/08/23 History (1,500 mg) tablet multivitamin (Daily Multi-Vitamin 1 tab PO QPM 12/26/20 03/08/23 History tablet) albuterol sulfate 90 mcg/actuation 2 puff inhalation Q4H PRN 12/04/21 03/08/23 Rx aerosol inhaler shortness of breath #3 grams montelukast 10 mg tablet 10 mg PO QPM PRN asthma 01/19/22 03/08/23 History fluticasone 250 mcg-salmeterol 50 1 inh inhalation DAILY 05/04/22 03/08/23 History mcg/dose blistr powdr for inhalation apixaban 5 mg tablet (Eliquis) 5 mg PO BID #180 tabs 05/13/22 03/08/23 Rx mometasone 50 mcg/actuation nasal 2 spray intranasal DAILY #51 grams 09/29/22 03/08/23 Rx spray tolterodine 2 mg tablet 2 mg PO QPM #90 tabs 01/10/23 03/08/23 Rx diltiazem HCl 240 mg capsule,24 240 mg PO QPM #90 caps 02/18/23 03/08/23 Rx hr,extended release atorvastatin 20 mg tablet 20 mg PO QPM 03/08/23 03/08/23 History fluticasone propionate 50 2 spray intranasal DAILY 03/08/23 03/08/23 History mcg/actuation nasal spray,suspension Patient History Medical History Asthma has inhaler Bronchitis d/t chronic nasal infection Colon polyps Diverticulosis of colon History of COVID-19 07/2020 - fever, lost taste/smell - no hospitalization - tested at urgent care - resolved Hyperlipidemia Melanoma Nasal polyps Osteopenia Palpitations h/o PAT, follows with [facility] PAT (paroxysmal atrial tachycardia) follows with [facility]. [place] Prediabetes Pulmonary hypertension Urinary incontinence Surgical History H/O hand surgery ganglion cyst - right hand History of appendectomy History of cholecystectomy History of colonoscopy History of shoulder surgery Right should S/P eye surgery removal of eye cysts S/P foot surgery crushed by horse 15 years ago Family History Grandmother (Paternal) Ovarian cancer Grandfather (Maternal) Stroke Mother Stroke Brother Colorectal cancer Father Colorectal cancer Grandmother (Maternal) Colorectal cancer Other No family history of adverse response to anesthesia No family history of bleeding disorder Denies family history of Prostate cancer Myocardial infarction Breast cancer Social History Smoking Status: Never smoker Second Hand Exposure: No; Do You Dip or Chew Tobacco: No; Hx Alcohol Use: Yes Alcohol type: wine Hx Substance Use: No Preferred Language: Yakut Communication Ability: Effective Hearing Ability: Normal Consumer Sales Representative Required: No Beliefs That Will Affect Care: None marital status: / Current Living Situation: Spouse current occupational status: retired How many Children do You have: 1 Feels Safe at Home: Yes Childhood Exposure to Second-Hand Smoke: No Diet: regular caffeine: Yes (coffee) Dental Care, Regularly: Yes Physical Activity Frequency: Daily Seatbelt Use: always Sunscreen Use: Yes Assistive Devices: Special Shoe and Walker Review of Systems +word finding difficulty Physical Exam Neurological Examination: Mental Status: Awake and alert. Oriented to person, place, and time. Very mild dysfluency. Comprehension intact. Affect appropriate. Cranial Nerves: II: Reads NIHSS cards, pupils 3/3 to 2/2 III/IV/: Versions intact without nystagmus, no gaze preference. V: Facial sensation symmetric to light touch VII: Facial expression symmetric VIII: Hearing intact to voice IX/X: Palate elevates symmetrically XI: Shoulder shrug symmetric XII: Tongue midline Motor: Strength was symmetric and antigravity throughout. Pronator drift was absent. There were no abnormal movements. Coordination: No dysmetria Reflexes: Unable to assess over telemedicine Results & Data Vital Signs (Past 12 Hours) Vital Signs Temp Pulse Pulse Pulse Resp BP BP 03/09/23 07:40 36.7 C 67 16 150/78 H 03/09/23 01:00 72 03/09/23 04:16 36.7 C 66 20 157/83 H 03/09/23 04:16 03/09/23 00:41 36.8 C 88 18 171/77 H 03/08/23 23:07 63 20 174/94 H 03/08/23 22:00 69 21 03/08/23 22:00 149/81 H 03/08/23 21:30 75 18 03/08/23 21:30 152/85 H 03/08/23 21:00 68 23 Pulse Ox O2 Del Method 03/09/23 07:40 93 Room Air 03/09/23 01:00 03/09/23 04:16 92 Room Air 03/09/23 04:16 Room Air 03/09/23 00:41 94 Room Air 03/08/23 23:07 93 Room Air 03/08/23 22:00 93 03/08/23 22:00 03/08/23 21:30 94 03/08/23 21:30 03/08/23 21:00 93 Laboratory Results Abnormal lab results 03/08/23 03/08/23 03/08/23 Range/Units 19:34 19:34 19:37 WBC 11.63 H (4.8-10.8) K/ul Neut # (Auto) 7.64 H (1.40-6.50) K/uL [place] # (Auto) 0.64 H (0.11-0.59) K/uL Chloride (98-107) mmol/L POC BUN 25 H (7-18) mg/dl Creatinine (0.6-1.2) mg/dl BUN/Creatinine Ratio 25.6 H (10-20) Glucose 104 H (70-99(Fasting)) mg/dl POC Glucose (other) 107 H (70-99) mg/dl Hemoglobin A1c (4.5-5.6) % Triglycerides (0-150) mg/dl Cholesterol (0-200) mg/dl VLDL Cholesterol, Calc (0-30) mg/dl 03/09/23 03/09/23 Range/Units 06:46 06:46 WBC (4.8-10.8) K/ul Neut # (Auto) (1.40-6.50) K/uL [place] # (Auto) (0.11-0.59) K/uL Chloride 109 H (98-107) mmol/L POC BUN (7-18) mg/dl Creatinine 0.57 L (0.6-1.2) mg/dl BUN/Creatinine Ratio 24.6 H (10-20) Glucose 111 H (70-99(Fasting)) mg/dl POC Glucose (other) (70-99) mg/dl Hemoglobin A1c 6.0 H (4.5-5.6) % Triglycerides 208 H (0-150) mg/dl Cholesterol 211 H (0-200) mg/dl VLDL Cholesterol, Calc 42 H (0-30) mg/dl Diagnostic Findings Chest X-Ray 03/08/23 19:20 XR chest 1V portable CLINICAL HISTORY: neuro deficit, acute stroke suspected TECHNIQUE: Single frontal radiograph of the chest was obtained. Comparison: Comparison is made to chest radiograph 04/02/2022 FINDINGS: No lines and tubes are seen. The cardiomediastinal silhouette is normal. The lungs are clear. No evidence of pleural effusion or pneumothorax. IMPRESSION: No acute chest disease. ACT 112: Negative or not required by law. Electronically signed by: Phi Worrell M.D. 03/09/2023 8:[address] 03/08/23 19:20 CR Exam(s): CT HEAD Without Contrast EXAM: CT Head Without Intravenous Contrast CLINICAL HISTORY: Reason for exam: neuro deficit, acute stroke suspected. TECHNIQUE: Axial computed tomography images of the head/brain without intravenous contrast. CTDI is 38.31 mGy and DLP is 546.36 mGy-cm. Automated exposure control was utilized for the study. A dose lowering technique was utilized adhering to the principles of ALARA. COMPARISON: None. FINDINGS: Brain: Global parenchymal volume loss with chronic microvascular ischemic changes. No hemorrhage. Ventricles: Unremarkable. No ventriculomegaly. Bones/joints: Osteoarthritis of the temporomandibular joints. No acute fracture. Soft tissues: Unremarkable. Sinuses: Mucosal thickening throughout the paranasal sinuses with aerated secretion in the left sphenoid sinus. Mastoid air cells: Unremarkable as visualized. No mastoid effusion. IMPRESSION: 1. No intracranial hemorrhage or evidence of large territorial infarction. 2. Global parenchymal volume loss with chronic microvascular ischemic changes. Communications: Call Doctor Stroke Electronically signed by: Pranay Peres MD 03/08/23 20:59 PM Head CTA 03/08/23 19:20 CR Exam(s): CTA HEAD With Contrast IV Amt: 118 ml optiray 350 EXAM: CT Angiography Head With Intravenous Contrast CLINICAL HISTORY: Reason for exam: neuro deficit, acute stroke suspected. TECHNIQUE: Axial computed tomographic angiography images of the head with intravenous contrast. CTDI is 38.31 mGy and DLP is 546.36 mGy-cm. Automated exposure control was utilized for the study. A dose lowering technique was utilized adhering to the principles of ALARA. MIP reconstructed images were created and reviewed. CONTRAST: Patient received 118 ml optiray 350 of IV contrast COMPARISON: None. FINDINGS: Right internal carotid artery: No acute findings. Intracranial segment is patent with no significant stenosis. No aneurysm. Right anterior cerebral artery: Unremarkable. No occlusion or significant stenosis. No aneurysm. Right middle cerebral artery: Unremarkable. No occlusion or significant stenosis. No aneurysm. Right posterior cerebral artery: Unremarkable. No occlusion or significant stenosis. No aneurysm. Right vertebral artery: Unremarkable as visualized. Left internal carotid artery: No acute findings. Intracranial segment is patent with no significant stenosis. No aneurysm. Left anterior cerebral artery: Unremarkable. No occlusion or significant stenosis. No aneurysm. Left middle cerebral artery: Unremarkable. No occlusion or significant stenosis. No aneurysm. Left posterior cerebral artery: Unremarkable. No occlusion or significant stenosis. No aneurysm. Left vertebral artery: Unremarkable as visualized. Basilar artery: Unremarkable. No occlusion or significant stenosis. No aneurysm. IMPRESSION: No large vessel occlusion. Communications: Call Doctor Stroke Electronically signed by: Pranay Peres MD 03/08/23 21:00 PM Neck CTA 03/08/23 19:20 CR Exam(s): CTA NECK With Contrast IV Amt: 118 ml optiray 350 EXAM: CT Angiography Neck With Intravenous Contrast CLINICAL HISTORY: Reason for exam: neuro deficit, acute stroke suspected. TECHNIQUE: Routine carotid CT angiography protocol was performed with intravenous contrast. NASCET criteria using the distal ICAs for comparison were used for evaluation of stenoses. CTDI is 11.58 mGy and DLP is 449.12 mGy-cm. Automated exposure control was utilized for the study. A dose lowering technique was utilized adhering to the principles of ALARA. MIP reconstructed images were created and reviewed. CONTRAST: Patient received 118 ml optiray 350 of IV contrast COMPARISON: None. FINDINGS: VASCULATURE: Right common carotid artery: Unremarkable. No occlusion or significant stenosis. No dissection. Right internal carotid artery: Unremarkable. Extracranial segment is patent with no occlusion or significant stenosis. No dissection. Right external carotid artery: Unremarkable. No occlusion. Right vertebral artery: Unremarkable. No occlusion or significant stenosis. No dissection. Left common carotid artery: Unremarkable. No occlusion or significant stenosis. No dissection. Left internal carotid artery: Unremarkable. Extracranial segment is patent with no occlusion or significant stenosis. No dissection. Left external carotid artery: Unremarkable. No occlusion. Left vertebral artery: Unremarkable. No occlusion or significant stenosis. No dissection. NECK: Bones/joints: Unremarkable. Soft tissues: Unremarkable. Lung apices: Clear. CAROTID STENOSIS REFERENCE USING NASCET CRITERIA: % ICA stenosis = (1 - narrowest ICA diameter/diameter of distal cervical ICA) x 100. Mild - <50% stenosis. Moderate - 50-69% stenosis. Severe - 70-94% stenosis. Near occlusion - 95-99% stenosis. Occluded - 100% stenosis. IMPRESSION: No dissection, pseudoaneurysm, or hemodynamically stenosis of the carotid or vertebral arteries. Communications: Call Doctor Stroke Electronically signed by: Pranay Peres MD 03/08/23 21:04 PM Brain MRI 03/09/23 01:20 CR Exam(s): MRI HEAD W/WO Contrast IV Amt: 6.5cc gadavist EXAM: MR Head Without and With Intravenous Contrast CLINICAL HISTORY: Reason for exam: ?CVA. TECHNIQUE: Magnetic resonance images of the head/brain without and with intravenous contrast in multiple planes. CONTRAST: Patient received 6.5cc gadavist of IV contrast COMPARISON: Comparison made to prior head CT from March 08, 2023. FINDINGS: Brain: There is an acute ischemic injury within the left capsule and basal ganglia with moderate cytotoxic edema. No evidence of hemorrhagic transformation. Mild to moderate nonspecific white matter changes. The flow voids at the base of the brain are intact. No evidence of abnormal enhancement. The dural venous sinuses are patent. Ventricles: Mild ventriculomegaly. Bones/joints: Unremarkable. Sinuses: Chronic, sphenoid ethmoid and frontal sinusitis. No acute sinusitis. Mastoid air cells: Unremarkable as visualized. No mastoid effusion. Orbits: Unremarkable as visualized. IMPRESSION: Acute ischemic injury within the left capsule and basal ganglia without evidence of hemorrhagic transformation. Communications: Verify Receipt with Nurse Electronically signed by: Mary Pérez MD 03/09/23 05:16 AM
[2023-03-09] MEDS ORDERED: ASPIRIN 81 MG ECTAB PO SCH (09:00)
[2023-03-09] MEDS ORDERED: CLOPIDOGREL BISULFATE 75 MG TAB PO SCH (09:00)
[2023-03-09] MEDS ORDERED: FLUTICASONE/VILANTEROL 200/25MCG 14 PUFFS/INHALER INH SCH (09:00)
[2023-03-09] MEDS ORDERED: FLUTICASONE PROPIONATE NA SPR 16 GM BTL SCH (09:00)
[2023-03-09] MEDS ORDERED: APIXABAN 5 MG TABLET PO SCH (09:15)
[2023-03-09] MEDS ORDERED: dilTIAZem HCL 240 MG CAPCR PO SCH (09:15)
--- NOTE | 2023-03-09 11:49 | Discharge Summary ---
Date of Service March 09, 2023 Admission HPI Per Admitting Provider Andressa Esteves is a pleasant right-hand dominant 82yo female with history of HLP, Pre-DM, possible TIA 3 years ago for which she was seen at Urgent Care presenting with word finding difficulty and right hand clumsiness. Patient was last seen normal last night 03/07/23 at 23:00 before going to bed. She reports feeling restless all through the night - she did not sleep well which is atypical for her. She woke up at 06:30 and noted some speech difficulty, word finding issues and difficulty saying the words as well as clumsiness of her right hand. She also reports some blurry vision. She [place] [facility] [place] which was recently operated on. She reports that the appointment went well but the provider commented that she didn't seem like herself. Her symptoms worsened throughout the day which prompted her to come to the ER. Additionally, patient reports having an isolated fever, chills and body aches 2 days ago which has since resolved. No additional complaints at this time - specifically denies chest pain, palpitations, cough, SOB, nausea, vomiting, diarrhea or urinary complaints. She feels that her symptoms are overall improving. She states she is speaking more fluently and her right hand clumsiness is improving as well. In the ER she is afebrile, hypertensive otherwise HD stable Principal Diagnosis Ischemic left hemisphere CVA, expressive dysphasia Discharge Exam General-alert and oriented x3, no fevers, no chills HEENT-head atraumatic and normocephalic, pupils equal and reactive to light, extraocular muscles intact Neck-no lymphadenopathy or thyromegaly, trachea midline Chest-clear to auscultation percussion. No rales wheezing or rhonchi Cardiac-regular rate and rhythm, normal S1 and S2, no murmurs Abdomen-normal bowel sounds, nontender, no hepatosplenomegaly Extremities-no cyanosis, clubbing, or edema Neuro-cranial nerves II through XII intact, motor and sensory function within normal limits, strength symmetrical , difficulty finding some words. No dysarthria Psych-normal affect, normal mood Discharge Data Allergies Allergy/AdvReac Type Severity Reaction Status Date / Time Sulfa (Sulfonamide Allergy Mild Rash, Verified 01/04/23 14:01 Antibiotics) Trouble breathing Consultations 03/08/23 21:18 ED Decision to Admit Stat 03/09/23 00:41 Consult Neurology Routine Ordered Studies 03/08/23 19:20 CT angio head w con Stat CT angio neck with con Stat CT head/brain wo con Stat 03/09/23 01:20 MR brain wo/w con Routine Hospital Course (1) Slurred speech: Ischemic left MCA distribution CVA present on admission producing expressive dysphasia. She is having difficulty finding some words. No motor deficits whatsoever. She has been seen by neurology. She is stable for discharge home. Eliquis has been restarted. She will continue low-dose aspirin 81 mg daily. Atorvastatin has been increased from 20 to 40 mg daily. (2) Paroxysmal atrial fibrillation: Presently in NSR. Patient is anticoagulated on Apixaban. Diltiazem has been restarted. Telemetry -Telemetry monitoring (3) Hyperlipidemia: Stable. Atorvastatin dosage has been increased Plan Home today, March 09. Follow-up with PCP as soon as possible Total Time Total Time Spent Total Time Spent (In Minutes): 45 minutes Discharge Plan Discharge Items Patient Disposition: Home - Self-Care Reason For Visit: ? CVA Discharge Diagnosis: Ischemic left MCA distribution CVA, expressive dysphasia Activity: Resume your previous activity Non-emergency contact: Primary Care Provider Call non-emergency contact if: your symptoms worsen Follow-up/Referrals: Cintia Allison MD [Primary Care Provider] - 03/16/23 11:30 am Diet: Regular and Heart Healthy Addtl Attending Provider Instructions: Atorvastatin dosage has been increased. Take aspirin 81 mg daily along with other medications Pending Studies at Discharge: No Stand-Alone Forms: My [facility] [employer], Smoking Cessation Medications and DC Order Prescriptions: New atorvastatin 40 mg Tablet 40 mg PO QPM Qty: 30 0RF aspirin 81 mg Tablet,Delayed Release (Dr/Ec) 81 mg PO DAILY Qty: 0 0RF Continued mometasone 50 mcg/actuation spray,non-aerosol 2 spray intranasal DAILY Qty: 51 2RF Rx Instructions: administer into each nostril tolterodine 2 mg tablet 2 mg PO QPM Qty: 90 0RF diltiazem HCl 240 mg capsule,extended release 24 hr 240 mg PO QPM Qty: 90 2RF calcium carbonate 600 mg calcium (1,500 mg) tablet 900 mg PO BID fluticasone propion-salmeterol 250-50 mcg/dose blister with device 1 inh inhalation DAILY Eliquis 5 mg tablet 5 mg PO BID Qty: 180 3RF multivitamin [Daily Multi-Vitamin] Tablet 1 tab PO QPM albuterol sulfate 90 mcg/actuation HFA aerosol inhaler 2 puff inhalation Q4H PRN (Reason: shortness of breath) Qty: 3 0RF montelukast 10 mg tablet 10 mg PO QPM PRN (Reason: asthma) fluticasone propionate 50 mcg/actuation spray,suspension 2 spray intranasal DAILY Discontinued atorvastatin 20 mg tablet 20 mg PO QPM Discharge Orders: Discharge Order (Routine); Ordered 03/09/23 Ordered By: Romel Lopez/Other Patient Handouts: Prediabetes Admission Data Admit Date/Time: 03/08/23 22:35 Attending Provider: Romel Mooeny Admit Provider: Valarie Salter Primary Care Provider: Cintia Allison Other Providers: Valarie Salter ; Flakito Marmolejo Coding Level of Care Code 03116 INP/OBS DISCH >30 MIN Diagnoses Slurred speech R47.81 Paroxysmal atrial fibrillation I48.0 Hyperlipidemia E78.2 Hyperlipidemia type: mixed hyperlipidemia
--- NOTE | 2023-03-09 12:51 | XCELERA ---
[id number]
--- NOTE | 2023-03-09 14:13 | Electrocardiogram Report ---
Test Reason : Blood Pressure : / mmHG Vent. Rate : 071 BPM Atrial Rate : 071 BPM P-R Int : 176 ms QRS Dur : 084 ms QT Int : 394 ms P-R-T Axes : 068 -09 051 degrees QTc Int : 428 ms Normal sinus rhythm Confirmed by Berhane Swanson ([id number]) on 03/09/2023 2:13:14 PM Referred By: REFERRED SELF Confirmed By:Veto Swanson
[2023-03-09] MEDS ORDERED: ATORVASTATIN 40 MG TAB PO SCH (21:00)
== END 2023-03-09 13:20 | disposition home or self-care (01) ==
LOC: 2N 19:14 → ED 19:14 → SUATTDRO 22:35 → 2N 23:50